=== PATIENT | male | born 1970 | race Caucasian/White ===

== ENCOUNTER 2021-01-01 20:13 | Inpatient (IN) | payer OTHER ==
[2021-01-01] MEDS ORDERED: LACTATED RINGERS SOLUTION 1000 ML INFUS.BAG IV ONE (21:16)
[2021-01-01 21:48] LABS: URINE APPEARANCE CLEAR; URINE BILIRUBIN NEGATIVE (NEGATIVE); URINE COLOR YELLOW; URINE GLUCOSE (UA) 3+ (NEGATIVE); URINE KETONE NEGATIVE (NEGATIVE); URINE LEUK ESTERASE NEGATIVE (NEGATIVE); URINE NITRITE NEGATIVE (NEGATIVE); URINE PROTEIN TRACE (NEGATIVE); URINE UROBILINOGEN 0.2 mg/dL (0.2-1.0)
[2021-01-01 22:11] LABS: BASO % 0.2 % (0-2.0); EOS % 1.1 % (0-4.5); HEMATOCRIT 28.6 % (35.4-49); HEMOGLOBIN 9.1 GM/dL (11.7-16.9); LYMPH % 16.2 % (8-40); MCH 24.7 pg (25.7-33.7); MCHC 31.9 g/dl (32.0-35.9); MEAN CELL VOLUME 77.4 fl (80-96); MEAN PLT VOLUME 7.9 fl (7.5-11.1); MONO % 9.2 % (3.8-10.2); NEUT % 73.3 % (42.8-82.8); PLATELET COUNT 362 10^3/uL (134-434); RDW 15.8 % (11.9-15.9); WHITE BLOOD COUNT 10.8 K/mm3 (4.0-10.0)
[2021-01-01 22:17] LABS: VENOUS BASE EXCESS 7.1 mmol/L (-2-2); VENOUS O2 SATURATION 34.3 % (70-80); VENOUS PCO2 63.3 mmHg (38-52); VENOUS PH 7.35 (7.310-7.410)
[2021-01-01 22:32] LABS: CHLORIDE 91 mmol/L (98-107); SODIUM 131 mmol/L (136-145)
[2021-01-01 22:34] LABS: CALCIUM 8.6 mg/dL (8.5-10.1)
[2021-01-01 22:35] LABS: ALBUMIN 2.5 g/dl (3.4-5.0); ANION GAP 6 MMOL/L (8-16); BLOOD UREA NITROGEN 20.6 mg/dL (7-18); CO2 34 mmol/L (21-32); MAGNESIUM 2.1 mg/dL (1.8-2.4)
[2021-01-01 22:38] LABS: CREATININE 1.3 mg/dL (0.55-1.3); SGOT/AST 12 U/L (15-37); SGPT/ALT 9 U/L (13-61)
[2021-01-01 22:40] LABS: BILIRUBIN,TOTAL 0.1 mg/dL (0.2-1); TOT PROT 8.3 g/dl (6.4-8.2)
[2021-01-01 22:41] LABS: ALK PHOS 162 U/L (45-117)
[2021-01-01 22:50] LABS: GLUCOSE,RANDOM 487 mg/dL (74-106)
[2021-01-01] MEDS ORDERED: VANCOMYCIN 1 GM in D5W (PRE-DOCKED) 1,000 MG/250 ML IVPB ONE (23:12)
[2021-01-01] MEDS ORDERED: PIPERACILLIN/TAZOB 3.375 GM 3.375 GM in DEXTROSE 5%-WATER - 50 ML IVPB ONE (23:12)
[2021-01-01] MEDS ORDERED: VANCOMYCIN 1 GRAM (PRE-DOCKED) 1,000 MG/250 ML BAG IVPB ONE (23:21)
[2021-01-01 23:45] LABS: LACTIC ACID 2.2 mmol/L (0.4-2.0)
[2021-01-02] MEDS ORDERED: INSULIN REGULAR HUMAN 100 UNITS/ML *VIAL IVPUSH ONE (00:54)
[2021-01-02] MEDS: ZINC OXIDE/PANTHENOL/VITAMIN E 56 GM TUBE TP SCH ×2 (02:30→11:21)
[2021-01-02] MEDS ORDERED: MAG HYDROX/AL HYDROX/SIMETH 30 ML UNIT-DOSE CUP PO ONE (03:21)
[2021-01-02] MEDS ORDERED: Insulin (LOG) Aspart 100 UNITS/ML VIAL SQ ONE (03:27)
[2021-01-02] MEDS: LACTATED RINGERS SOLUTION 1,000 ML/1,000 ML INFUS.BAG IV SCH ×2 (03:53→05:11)
[2021-01-02] MEDS: PANTOPRAZOLE 40 MG TABLET PO SCH ×2 (03:54→09:56)
[2021-01-02] MEDS ORDERED: PROCHLORPERAZINE INJECTION 10 MG/2 ML VIAL IVPB PRN (05:00)
[2021-01-02] MEDS ORDERED: diazePAM CARPU-JECT 10 MG/2 ML DISP.SYRIN IVPUSH PRN (05:00)
[2021-01-02] MEDS: HEPARIN NA (PORCINE) 5,000 UNITS/ML 1ML VIAL SQ SCH ×3 (05:42→21:55)
[2021-01-02 06:06] VITALS: BMI 20.2
[2021-01-02] MEDS: INSULIN SLIDING SCALE (NOVOLOG) 1 VIAL SQ SCH ×4 (06:50→22:01)
[2021-01-02 09:00] LABS: HEMATOCRIT 25.8 % (35.4-49); HEMOGLOBIN 8.4 GM/dL (11.7-16.9); MCHC 32.5 g/dl (32.0-35.9); MEAN CELL VOLUME 77.1 fl (80-96); MEAN PLT VOLUME 7.9 fl (7.5-11.1); PLATELET COUNT 329 10^3/uL (134-434); RBC 3.35 M/mm3 (4.00-5.60); RDW 15.4 % (11.9-15.9); WHITE BLOOD COUNT 10.5 K/mm3 (4.0-10.0)
[2021-01-02 09:12] LABS: INR 0.98 (0.83-1.09); PROTHROMBIN TIME (PATIENT) 12.1 SEC (9.7-13.0)
[2021-01-02 09:15] LABS: ACTIVATED PTT 27.3 SECONDS (25.2-36.5)
[2021-01-02 09:22] LABS: BLOOD UREA NITROGEN 16.5 mg/dL (7-18); CALCIUM 8.3 mg/dL (8.5-10.1)
[2021-01-02 09:23] LABS: MAGNESIUM 1.9 mg/dL (1.8-2.4)
[2021-01-02 09:25] LABS: PHOSPHOROUS 1.8 mg/dL (2.5-4.9)
[2021-01-02 09:26] LABS: CREATININE 0.9 mg/dL (0.55-1.3)
[2021-01-02 09:27] LABS: BILIRUBIN,TOTAL 0.2 mg/dL (0.2-1); TOT PROT 6.8 g/dl (6.4-8.2)
[2021-01-02] MEDS ORDERED: PT OWN MED DRAWER 7, Y5N ONE (09:28)
[2021-01-02] MEDS: LISINOPRIL 5 MG TABLET PO SCH (09:56)
[2021-01-02] MEDS ORDERED: cloNIDine HCL 0.1 MG TABLET PO PRN (10:31)
[2021-01-02] MEDS ORDERED: methaDONE HCL 10 MG TABLET PO ONE (10:31)
[2021-01-02] MEDS ORDERED: VANCOMYCIN 1 GRAM (PRE-DOCKED) 1,000 MG/250 ML BAG IVPB SCH (11:00)
[2021-01-02] MEDS: INSULIN (LEVEMIR) 100 UNITS/ML UNITS SQ SCH ×2 (11:05→21:02)
[2021-01-02] MEDS: SODIUM PHOSPHATE - 30 MM in SODIUM CHLORIDE 500 ML IVPB ONE ×2 (11:29→16:13)
[2021-01-02] MEDS: SILVER SULFADIAZINE 1% TOP CREAM 50 GM JAR TP SCH (13:40)
[2021-01-02] MEDS: COLLAGENASE CLOSTRIDIUM HIST. 30 GRAMS TUBE TP SCH (15:55)
[2021-01-02] MEDS: VANCOMYCIN 1 GM in D5W (PRE-DOCKED) 1,000 MG/250 ML IVPB SCH (16:12)
[2021-01-02] MEDS ORDERED: INSULIN (LEVEMIR) 100 UNITS/ML UNITS SQ ONE (17:08)
[2021-01-03] MEDS: LACTATED RINGERS SOLUTION 1,000 ML/1,000 ML INFUS.BAG IV SCH (03:51)
[2021-01-03] MEDS: HEPARIN NA (PORCINE) 5,000 UNITS/ML 1ML VIAL SQ SCH ×3 (05:29→21:02)
[2021-01-03] MEDS: INSULIN SLIDING SCALE (NOVOLOG) 1 VIAL SQ SCH ×4 (06:08→21:03)
[2021-01-03 07:43] LABS: BASO % 0.4 % (0-2.0); EOS % 0.6 % (0-4.5); HEMATOCRIT 31.7 % (35.4-49); HEMOGLOBIN 9.9 GM/dL (11.7-16.9); LYMPH % 21.8 % (8-40); MCH 24.3 pg (25.7-33.7); MCHC 31.3 g/dl (32.0-35.9); MEAN CELL VOLUME 77.6 fl (80-96); MEAN PLT VOLUME 8.3 fl (7.5-11.1); MONO % 7.7 % (3.8-10.2); NEUT % 69.5 % (42.8-82.8); PLATELET COUNT 371 10^3/uL (134-434); RBC 4.08 M/mm3 (4.00-5.60); RDW 15.7 % (11.9-15.9); WHITE BLOOD COUNT 10.6 K/mm3 (4.0-10.0)
[2021-01-03 08:02] LABS: CALCIUM 8.3 mg/dL (8.5-10.1)
[2021-01-03 08:03] LABS: ALBUMIN 2.2 g/dl (3.4-5.0); BLOOD UREA NITROGEN 15.5 mg/dL (7-18)
[2021-01-03 08:06] LABS: CREATININE 0.9 mg/dL (0.55-1.3); PHOSPHOROUS 3.1 mg/dL (2.5-4.9)
[2021-01-03 08:07] LABS: BILIRUBIN,TOTAL 0.5 mg/dL (0.2-1); TOT PROT 7.3 g/dl (6.4-8.2)
[2021-01-03] MEDS ORDERED: PT OWN MED DRAWER 7, Y5N ONE (09:04)
[2021-01-03] MEDS ORDERED: methaDONE HCL 10 MG TABLET ONE (09:06)
[2021-01-03] MEDS: INSULIN (LEVEMIR) 100 UNITS/ML UNITS SQ SCH (09:18)
[2021-01-03] MEDS: LISINOPRIL 5 MG TABLET PO SCH (09:18)
[2021-01-03] MEDS: PANTOPRAZOLE 40 MG TABLET PO SCH (09:18)
[2021-01-03] MEDS ORDERED: INSULIN SLIDING SCALE (NOVOLOG) 1 VIAL SQ ONE (11:10)
[2021-01-03] MEDS: ZINC OXIDE/PANTHENOL/VITAMIN E 56 GM TUBE TP SCH (11:15)
[2021-01-03] MEDS ORDERED: DEXTROSE 5%-WATER - 50 ML IVPB ONE ×2 (11:23→16:45)
[2021-01-03] MEDS ORDERED: PIPERACILLIN/TAZOBACTAM 3.375 GM VIAL IVPB ONE ×2 (11:23→16:44)
[2021-01-03] MEDS: PIPERACILLIN/TAZOB 3.375 GM 3.375 GM in DEXTROSE 5%-WATER - 50 ML IVPB SCH ×2 (11:26→17:20)
[2021-01-03 11:42] LABS: HIV INTERPRETATION NEGATIVE (NEGATIVE)
[2021-01-03] MEDS: COLLAGENASE CLOSTRIDIUM HIST. 30 GRAMS TUBE TP SCH (12:10)
[2021-01-03] MEDS: SILVER SULFADIAZINE 1% TOP CREAM 50 GM JAR TP SCH (12:10)
[2021-01-03] MEDS: VANCOMYCIN 1 GRAM (PRE-DOCKED) 1,000 MG/250 ML BAG IVPB SCH ×2 (12:13→22:48)
[2021-01-03] MEDS: LORazepam 1 MG TABLET PO PRN (21:02)
[2021-01-04] MEDS ORDERED: PIPERACILLIN/TAZOBACTAM 3.375 GM VIAL IVPB ONE ×3 (01:04→17:10)
[2021-01-04] MEDS ORDERED: DEXTROSE 5%-WATER - 50 ML IVPB ONE ×3 (01:04→17:10)
[2021-01-04] MEDS ORDERED: MELATONIN 5 MG TABLETS PO ONE (02:14)
[2021-01-04] MEDS: PIPERACILLIN/TAZOB 3.375 GM 3.375 GM in DEXTROSE 5%-WATER - 50 ML IVPB SCH ×3 (02:43→17:14)
[2021-01-04] MEDS: INSULIN (LEVEMIR) 100 UNITS/ML UNITS SQ SCH (06:01)
[2021-01-04] MEDS: INSULIN SLIDING SCALE (NOVOLOG) 1 VIAL SQ SCH ×4 (06:01→21:20)
[2021-01-04] MEDS: HEPARIN NA (PORCINE) 5,000 UNITS/ML 1ML VIAL SQ SCH ×3 (06:01→21:20)
[2021-01-04] MEDS ORDERED: methaDONE HCL 10 MG TABLET PO ONE (10:00)
[2021-01-04] MEDS: PANTOPRAZOLE 40 MG TABLET PO SCH (10:16)
[2021-01-04] MEDS: LISINOPRIL 5 MG TABLET PO SCH (10:16)
[2021-01-04] MEDS: ZINC OXIDE/PANTHENOL/VITAMIN E 56 GM TUBE TP SCH (10:40)
[2021-01-04] MEDS: VANCOMYCIN 1 GRAM (PRE-DOCKED) 1,000 MG/250 ML BAG IVPB SCH ×2 (11:26→22:22)
[2021-01-04] MEDS: COLLAGENASE CLOSTRIDIUM HIST. 30 GRAMS TUBE TP SCH (13:25)
[2021-01-04] MEDS: SILVER SULFADIAZINE 1% TOP CREAM 50 GM JAR TP SCH (13:26)
[2021-01-04] MEDS ORDERED: traZODone HCL 50 MG TABLET (FP) PO PRN (20:10)
[2021-01-04] MEDS: LORazepam 1 MG TABLET PO PRN (21:23)
[2021-01-05] MEDS ORDERED: DEXTROSE 5%-WATER - 50 ML IVPB ONE ×3 (01:23→17:52)
[2021-01-05] MEDS ORDERED: PIPERACILLIN/TAZOBACTAM 3.375 GM VIAL IVPB ONE ×3 (01:23→17:52)
[2021-01-05] MEDS: PIPERACILLIN/TAZOB 3.375 GM 3.375 GM in DEXTROSE 5%-WATER - 50 ML IVPB SCH ×3 (01:52→17:44)
[2021-01-05] MEDS: HEPARIN NA (PORCINE) 5,000 UNITS/ML 1ML VIAL SQ SCH ×3 (06:07→21:50)
[2021-01-05] MEDS: INSULIN SLIDING SCALE (NOVOLOG) 1 VIAL SQ SCH ×4 (06:08→21:50)
[2021-01-05] MEDS: INSULIN (LEVEMIR) 100 UNITS/ML UNITS SQ SCH (06:09)
[2021-01-05] MEDS: LISINOPRIL 5 MG TABLET PO SCH ×2 (10:07→13:27)
[2021-01-05] MEDS: PANTOPRAZOLE 40 MG TABLET PO SCH (10:07)
[2021-01-05] MEDS: COLLAGENASE CLOSTRIDIUM HIST. 30 GRAMS TUBE TP SCH (10:08)
[2021-01-05] MEDS ORDERED: methaDONE HCL 10 MG TABLET ONE (10:10)
[2021-01-05] MEDS: VANCOMYCIN 1 GRAM (PRE-DOCKED) 1,000 MG/250 ML BAG IVPB SCH ×2 (11:12→22:37)
[2021-01-05] MEDS: SILVER SULFADIAZINE 1% TOP CREAM 50 GM JAR TP SCH (12:01)
[2021-01-05] MEDS ORDERED: PT OWN MED DRAWER 7, Y5N ONE (17:51)
[2021-01-05] MEDS ORDERED: MELATONIN 5 MG TABLETS PO ONE (22:40)
[2021-01-06] MEDS ORDERED: DEXTROSE 5%-WATER - 50 ML IVPB ONE ×2 (01:04→07:57)
[2021-01-06] MEDS ORDERED: PIPERACILLIN/TAZOBACTAM 3.375 GM VIAL IVPB ONE ×2 (01:04→07:57)
[2021-01-06] MEDS: LORazepam 1 MG TABLET PO PRN (01:46)
[2021-01-06] MEDS: PIPERACILLIN/TAZOB 3.375 GM 3.375 GM in DEXTROSE 5%-WATER - 50 ML IVPB SCH ×2 (02:00→09:11)
[2021-01-06] MEDS ORDERED: PT OWN MED DRAWER 7, Y5N ONE (05:23)
[2021-01-06] MEDS: HEPARIN NA (PORCINE) 5,000 UNITS/ML 1ML VIAL SQ SCH ×3 (05:54→21:03)
[2021-01-06] MEDS: INSULIN (LEVEMIR) 100 UNITS/ML UNITS SQ SCH (06:21)
[2021-01-06] MEDS: INSULIN SLIDING SCALE (NOVOLOG) 1 VIAL SQ SCH ×4 (06:21→21:07)
[2021-01-06 07:56] LABS: BASO % 0.6 % (0-2.0); EOS % 1.3 % (0-4.5); HEMATOCRIT 29.8 % (35.4-49); HEMOGLOBIN 9.5 GM/dL (11.7-16.9); LYMPH % 19.5 % (8-40); MCH 24.5 pg (25.7-33.7); MEAN CELL VOLUME 76.6 fl (80-96); MONO % 8.6 % (3.8-10.2); PLATELET COUNT 374 10^3/uL (134-434); RBC 3.89 M/mm3 (4.00-5.60); RDW 15.9 % (11.9-15.9)
[2021-01-06 08:13] LABS: CALCIUM 8.3 mg/dL (8.5-10.1)
[2021-01-06 08:14] LABS: ALBUMIN 2.1 g/dl (3.4-5.0)
[2021-01-06 08:17] LABS: CREATININE 1.2 mg/dL (0.55-1.3)
[2021-01-06 08:18] LABS: BILIRUBIN,TOTAL 0.2 mg/dL (0.2-1)
[2021-01-06] MEDS: PANTOPRAZOLE 40 MG TABLET PO SCH (09:11)
[2021-01-06] MEDS: LISINOPRIL 5 MG TABLET PO SCH (09:11)
[2021-01-06] MEDS ORDERED: methaDONE HCL 10 MG TABLET PO ONE (10:00)
[2021-01-06] MEDS: COLLAGENASE CLOSTRIDIUM HIST. 30 GRAMS TUBE TP SCH (12:52)
[2021-01-06] MEDS: SILVER SULFADIAZINE 1% TOP CREAM 50 GM JAR TP SCH (12:53)
[2021-01-06] MEDS ORDERED: INSULIN (LEVEMIR) 100 UNITS/ML UNITS SQ SCH (17:08)
[2021-01-06] MEDS: AMOX TR/POT CLAV 875MG/125MG TABLETS (FP) PO SCH (18:03)
[2021-01-06] MEDS: LACTOBACILLUS ACIDOPHILUS 1 TABLET PO SCH (21:03)
[2021-01-06] MEDS: MELATONIN 5 MG TABLETS PO SCH (21:03)
[2021-01-07] MEDS: INSULIN SLIDING SCALE (NOVOLOG) 1 VIAL SQ SCH ×4 (06:23→21:08)
[2021-01-07] MEDS: HEPARIN NA (PORCINE) 5,000 UNITS/ML 1ML VIAL SQ SCH ×3 (06:23→21:07)
[2021-01-07 08:12] LABS: ALBUMIN 2.4 g/dl (3.4-5.0); CALCIUM 8.6 mg/dL (8.5-10.1); MAGNESIUM 2.3 mg/dL (1.8-2.4)
[2021-01-07 08:16] LABS: CREATININE 1.2 mg/dL (0.55-1.3); PHOSPHOROUS 4.1 mg/dL (2.5-4.9)
[2021-01-07 08:17] LABS: BILIRUBIN,TOTAL 0.2 mg/dL (0.2-1); TOT PROT 7.7 g/dl (6.4-8.2)
[2021-01-07 08:44] LABS: BASO % 0.5 % (0-2.0); EOS % 1.4 % (0-4.5); HEMATOCRIT 30.2 % (35.4-49); HEMOGLOBIN 9.6 GM/dL (11.7-16.9); LYMPH % 24.5 % (8-40); MCH 24.7 pg (25.7-33.7); MCHC 31.9 g/dl (32.0-35.9); MEAN CELL VOLUME 77.5 fl (80-96); MONO % 8.6 % (3.8-10.2); PLATELET COUNT 382 10^3/uL (134-434); RBC 3.89 M/mm3 (4.00-5.60); RDW 16.1 % (11.9-15.9); WHITE BLOOD COUNT 10.5 K/mm3 (4.0-10.0)
[2021-01-07] MEDS: AMOX TR/POT CLAV 875MG/125MG TABLETS (FP) PO SCH ×2 (09:21→17:32)
[2021-01-07] MEDS: SILVER SULFADIAZINE 1% TOP CREAM 50 GM JAR TP SCH (09:21)
[2021-01-07] MEDS: PANTOPRAZOLE 40 MG TABLET PO SCH (09:21)
[2021-01-07] MEDS: COLLAGENASE CLOSTRIDIUM HIST. 30 GRAMS TUBE TP SCH (09:21)
[2021-01-07] MEDS: LISINOPRIL 5 MG TABLET PO SCH (09:21)
[2021-01-07 20:53] VITALS: BP 113/64; PULSE 83; TEMP 98.3
[2021-01-07] MEDS: LACTOBACILLUS ACIDOPHILUS 1 TABLET PO SCH (21:06)
[2021-01-07] MEDS: MELATONIN 5 MG TABLETS PO SCH (21:07)
== END 2021-01-07 22:10 | disposition other institution (70) | DRG 383 ==
LOC: JER 20:13 → JERBED 23:13 → J5S 01-02 03:21
PROVIDERS: ADMIT Hospitalist; ATTEND Internal Medicine
DX: L03.116 Cellulitis of left lower limb (principal); F11.23 Opioid dependence with withdrawal; F14.23 Cocaine dependence with withdrawal; L03.115 Cellulitis of right lower limb; E11.65 Type 2 diabetes mellitus with hyperglycemia; L97.929 Non-pressure chronic ulcer of unspecified part of left lower leg with unspecified severity; L97.919 Non-pressure chronic ulcer of unspecified part of right lower leg with unspecified severity; E87.2 Acidosis; E46 Unspecified protein-calorie malnutrition; R64 Cachexia; E11.622 Type 2 diabetes mellitus with other skin ulcer; Z68.20 Body mass index [BMI] 20.0-20.9, adult
CPT/HCPCS: 36415; 71046-TC-FY; 73590-TC-LT-FY; 73590-TC-RT-FY; 80053; 80074; 81003; 82010; 82550; 82803; 82962; 82977; 83036; 83605; 83735; 84100; 84484; 85025; 85027; 85610; 85651; 85730; 86140; 87040; 87070; 87077; 87086; 87205; 87389; 87804; 93005; 93010; 94010; 97116-GP; 97161-GP; 99285-25; C9803; J1644; U0003; U0005

== ENCOUNTER 2021-01-07 22:35 | Inpatient (IN) | payer OTHER ==
[2021-01-07] MEDS ORDERED: MAGNESIUM HYDROX 2400MG/30ML ORAL SUSPENSION 30 ML CUP PO PRN (23:30)
[2021-01-07] MEDS ORDERED: MENTHOL/PHENOL 1 EACH UD MM PRN (23:30)
[2021-01-07] MEDS ORDERED: NICOTINE POLACRILEX 2 MG GUM BUC PRN (23:30)
[2021-01-07] MEDS ORDERED: LOPERAMIDE HCL 2 MG CAPSULE PO PRN (23:30)
[2021-01-07] MEDS ORDERED: MAG HYDROX/AL HYDROX/SIMETH 30 ML UNIT-DOSE CUP PO PRN (23:30)
[2021-01-07] MEDS ORDERED: guaiFENesin 200 MG/10 ML 10 ML UNIT-DOSE CUPS PO PRN (23:30)
[2021-01-07] MEDS ORDERED: ACETAMINOPHEN 325 MG TABLET (FP) PO PRN (23:30)
[2021-01-07] MEDS ORDERED: MAGNESIUM CITRATE 300 ML BOTTLE PO PRN (23:30)
[2021-01-07] MEDS ORDERED: hydrOXYzine PAMOATE 25 MG CAPSULE (FP) PO PRN (23:30)
[2021-01-07] MEDS ORDERED: P-EPHED 60MG/TRIPROLIDI 2.5MG TABLET PO PRN (23:30)
[2021-01-08 00:05] VITALS: BMI 21.6
[2021-01-08 01:40] VITALS: TEMP 97.1
[2021-01-08] MEDS: INSULIN (NOVOLOG) ASPART 100 UNITS/ML 10ML VIAL SQ SCH ×2 (07:10→12:09)
[2021-01-08] MEDS ORDERED: AMOX TR/POT CLAV 875MG/125MG TABLETS (FP) PO SCH (08:00)
[2021-01-08 09:20] VITALS: BP 103/68; PULSE 100
[2021-01-08] MEDS ORDERED: SILVER SULFADIAZINE 1% TOP CREAM 50 GM JAR TP SCH (10:00)
[2021-01-08] MEDS ORDERED: amLODIPine BESYLATE 5 MG TABLET (FP) PO SCH (10:00)
[2021-01-08] MEDS ORDERED: PRENATAL VITAMINS W/ FOLIC ACID TABLET (FP) PO SCH (10:00)
[2021-01-08] MEDS ORDERED: LISINOPRIL 5 MG TABLET PO SCH (10:00)
[2021-01-08] MEDS ORDERED: ASPIRIN 81 MG CHEWABLE TABLETS PO SCH (10:00)
[2021-01-08] MEDS ORDERED: INSULIN (LEVEMIR) 100 UNITS/ML UNITS SQ SCH (22:00)
[2021-01-08] MEDS ORDERED: LACTOBACILLUS ACIDOPHILUS 1 TABLET PO SCH (22:00)
[2021-01-08] MEDS ORDERED: THIAMINE HCL 100 MG TABLET (FP) PO SCH (22:00)
[2021-01-08] MEDS ORDERED: MELATONIN 5 MG TABLETS PO SCH (22:00)
== END 2021-01-08 14:13 | disposition left against medical advice (07) | DRG 770 ==
LOC: YASAS 22:35 → Y3E 23:15
PROVIDERS: ADMIT Allergy & Immunology; ATTEND Allergy & Immunology
PROC: HZ42ZZZ Group Counseling for Substance Abuse Treatment, Cognitive-Behavioral (ICD-10-PCS; principal; 2021-01-07)
DX: F11.20 Opioid dependence, uncomplicated (principal); F14.20 Cocaine dependence, uncomplicated; F17.210 Nicotine dependence, cigarettes, uncomplicated; I10 Essential (primary) hypertension; E11.9 Type 2 diabetes mellitus without complications; L98.499 Non-pressure chronic ulcer of skin of other sites with unspecified severity; Z79.4 Long term (current) use of insulin; Z89.421 Acquired absence of other right toe(s)
CPT/HCPCS: 82962